=== PATIENT | male | born 2000 | race Caucasian/White ===

== ENCOUNTER 2020-02-27 18:39 | Emergency (ER) | payer OTHER ==
[2020-02-27] MEDS ORDERED: AUGM500T34 PO (19:35)
[2020-02-27] MEDS ORDERED: AUGMENTIN 875 MG TAB PO ONE (19:45)
[2020-02-27 19:56] VITALS: BP 141/85
--- NOTE | 2020-02-28 02:29 | REP ---
Clinical: Cough . Comparison: None . Findings: The mediastinum and cardiac silhouette are stable and within normal limits for portable technique. The lung sams are clear without acute consolidation, effusion, or pneumothorax. Skeletal structures are intact. Impression: No acute cardiopulmonary process appreciated. Electronically Signed by Shravan Hilario MD 02/28/2020 02:20 A
== END 2020-02-27 20:03 | disposition home or self-care (01) ==
LOC: M ED 18:39
DX: J32.9 Chronic sinusitis, unspecified (principal); J06.9 Acute upper respiratory infection, unspecified
CPT/HCPCS: 36600; 71045; 82803; 87486; 87581; 87633; 87798; 99283; C9803; U0003

== ENCOUNTER 2021-05-01 09:12 | Emergency (ER) | payer OTHER ==
[~2021-05-01] VITALS: Ht 188 cm; Wt 94.1 kg
[~2021-05-01 09:12] MED LIST: AUGM500T34 PO
--- NOTE | 2021-05-01 11:04 | REP ---
INDICATION: crush injury to 4th finger. COMPARISON: None. TECHNIQUE: Four views of the left ring finger. FINDINGS: Four views of the left ring finger demonstrate a crush type fracture of the distal tuft with associated soft tissue swelling. No displacement. No opaque foreign body.. . . IMPRESSION: Crush-type fracture distal tuft left ring finger.. <Electronically signed by Dwight Mena > 05/01/21 1100
[2021-05-01] MEDS ORDERED: CEPH500C PO (12:17)
[2021-05-01] MEDS ORDERED: CEPHALEXIN 500 MG CAP PO ONE (12:20)
[2021-05-01 12:39] VITALS: BP 148/91
== END 2021-05-01 12:42 | disposition home or self-care (01) ==
LOC: M ED 09:12
DX: S62.665A Nondisplaced fracture of distal phalanx of left ring finger, initial encounter for closed fracture (principal); W23.0XXA Caught, crushed, jammed, or pinched between moving objects, initial encounter; Y92.39 Other specified sports and athletic area as the place of occurrence of the external cause; Y93.89 Activity, other specified; Y99.9 Unspecified external cause status; F17.200 Nicotine dependence, unspecified, uncomplicated

== ENCOUNTER 2021-12-26 08:09 | Inpatient (IN) | payer OTHER ==
[~2021-12-26] VITALS: Ht 188 cm; Wt 96.4 kg
[~2021-12-26 08:09] MED LIST changes: +CEPH500C PO
[2021-12-26] MEDS ORDERED: GABA-1171 PO (08:19)
[2021-12-26] MEDS ORDERED: ZOLO100T PO (08:19)
[2021-12-26 08:57] LABS: HEMATOCRIT 46.8 % (42.0-52.0); HEMOGLOBIN 15.6 g/dl (13.5-17.5); MEAN CORPUSCULAR HGB CONC 33.3 g/dl (32.0-36.5); MEAN CORPUSCULAR VOLUME 83.9 fl (80.0-96.0); PLATELET COUNT, AUTOMATED 238 10^3/uL (150-450); RED BLOOD COUNT 5.58 10^6/uL (4.30-6.10); WHITE BLOOD COUNT 5.5 10^3/uL (4.0-10.0)
[2021-12-26 09:22] LABS: AMPHETAMINES LEVEL URINE NEGATIVE (NEGATIVE); BARBITURATES URINE NEGATIVE (NEGATIVE); BENZODIAZEPINES URINE NEGATIVE (NEGATIVE); CANNABINOIDS URINE NEGATIVE (NEGATIVE); COCAINE METABOLITE URINE NEGATIVE (NEGATIVE); METHADONE URINE NEGATIVE (NEGATIVE); OPIATES URINE NEGATIVE (NEGATIVE); PHENCYCLIDINE URINE NEGATIVE (NEGATIVE)
[2021-12-26 09:32] LABS: ACETAMINOPHEN LEVEL < 2.0 UG/ML (10.0-30.0); ALBUMIN 4.5 GM/DL (3.2-5.2); ALT/SGPT 34 U/L (12-78); BILIRUBIN,DIRECT 0.1 MG/DL (0.0-0.2); BILIRUBIN,TOTAL 0.3 MG/DL (0.2-1.0); BLOOD UREA NITROGEN 12 MG/DL (7-18); CALCIUM LEVEL 9.3 MG/DL (8.5-10.1); CARBON DIOXIDE LEVEL 32 MEQ/L (21-32); CHLORIDE LEVEL 104 MEQ/L (98-107); CREATININE FOR GFR 0.92 MG/DL (0.70-1.30); ETHYL ALCOHOL (ETHANOL) < 0.003 % (0.000-0.010); GLOMERULAR FILTRATION RATE > 60.0 (>60); GLUCOSE, FASTING 86 MG/DL (70-100); POTASSIUM SERUM 3.9 MEQ/L (3.5-5.1); SALICYLATE LEVEL < 1.7 MG/DL (5.0-30.0); SODIUM LEVEL 141 MEQ/L (136-145); THYROID STIMULATING HORMONE 0.665 uIU/ML (0.358-3.740); TOTAL PROTEIN 7.6 GM/DL (6.4-8.2)
[2021-12-26 09:46] LABS: RSV AMPLIFICATION NEGATIVE (NEGATIVE)
[2021-12-26] MEDS ORDERED: hydrOXYzine 25 MG TAB PO PRN (11:20)
[2021-12-26] MEDS ORDERED: MAALOX 30 ML SUSP *UDC PO PRN (11:20)
[2021-12-26] MEDS ORDERED: traZODone 50 MG TAB PO PRN (11:20)
[2021-12-26] MEDS ORDERED: MOM 30ML SUSPENSION UDC PO PRN (11:20)
[2021-12-26 12:13] VITALS: BP 156/82
[2021-12-26] MEDS ORDERED: IBUP-1363 PO (12:20)
[2021-12-26] MEDS ORDERED: ERGO500029 PO (12:20)
[2021-12-26] MEDS ORDERED: HOME MED LIST COMPLETE! XX SCH (12:20)
[2021-12-26] MEDS ORDERED: MELA5CAP2 PO (12:20)
[2021-12-26] MEDS ORDERED: SUMA25TA3 PO (12:20)
[2021-12-26] MEDS: ACETAMINOPHEN TAB 650MG DOSE (2X325MG) PO PRN (13:20)
[2021-12-27] MEDS: ACETAMINOPHEN TAB 650MG DOSE (2X325MG) PO PRN (06:18)
[2021-12-27 06:41] VITALS: BP 126/78
[2021-12-27] MEDS ORDERED: SERTRALINE HCL 50 MG TAB PO SCH (09:00)
== END 2021-12-27 12:56 | disposition home or self-care (01) | DRG 885 ==
LOC: M ED 08:09 → M ED INP 11:20 → M PSY 12:18
PROVIDERS: ADMIT Student in an Organized Health Care Education/Training Program; ATTEND Student in an Organized Health Care Education/Training Program
DX: F32.0 Major depressive disorder, single episode, mild (principal); R45.851 Suicidal ideations; F41.8 Other specified anxiety disorders; Z60.8 Other problems related to social environment; Z63.4 Disappearance and death of family member; Z20.822 Contact with and (suspected) exposure to COVID-19; Z91.52 Personal history of nonsuicidal self-harm; F17.290 Nicotine dependence, other tobacco product, uncomplicated; Z79.899 Other long term (current) drug therapy